=== PATIENT | male | born 1960 | race Caucasian/White ===

== ENCOUNTER → 2020-04-03 | Outpatient (CLI) | payer OTHER ==
[~2020-04-03] MED LIST: AMLODIPINE-BEN1 EAC5 PO; ATORVASTATIN CA20 MG PO; CLOPIDOGREL75 MG PO; GLIMEPIRIDE4 MG PO; HYDROCHLOROTHIA25 M2 PO; JARDIANCE10 MG PO; MAGOX 400400 MG PO; METFORMIN HCL500 MG PO; METOPROLOL SUC100 MG PO; PERCOCET 5-3251 EACH PO; PRED FORTE 1% EY5 M1 OPHTHALMIC; TRIGLIDE160 MG PO; XARELTO10 M1 PO
== END ==
LOC: M.MRI 08:20
PROVIDERS: ATTEND Orthopaedic Surgery
DX: S83.282A Other tear of lateral meniscus, current injury, left knee, initial encounter (principal); S83.242A Other tear of medial meniscus, current injury, left knee, initial encounter; M25.762 Osteophyte, left knee; M25.862 Other specified joint disorders, left knee; M17.12 Unilateral primary osteoarthritis, left knee; G89.29 Other chronic pain; X58.XXXA Exposure to other specified factors, initial encounter; Y93.89 Activity, other specified; Y92.89 Other specified places as the place of occurrence of the external cause; Y99.8 Other external cause status

== ENCOUNTER → 2020-04-29 | Outpatient (CLI) | payer OTHER ==
[~2020-04-29] MED LIST changes: -MAGOX 400400 MG PO; -PERCOCET 5-3251 EACH PO; -XARELTO10 M1 PO
[2020-04-29 10:32] LABS: HEMATOCRIT 46.8 % (42.0-52.0); HEMOGLOBIN 16.7 gm/dL (14.0-18.0); MCH 32.4 pg (26.0-34.0); MCHC 35.7 g/dL (28.0-37.0); MCV 90.7 fL (80.0-100.0); MPV 6.8 fl. (7.2-11.1); RBC 5.16 mil/uL (4.50-6.00); RDW-CV 13.4 % (10.5-14.5)
[2020-04-29 10:39] LABS: PROTIME 10.4 Seconds (9.20-11.50)
[2020-04-29 10:43] LABS: URINE BILIRUBIN NEGATIVE (Negative); URINE BLOOD NEGATIVE (Negative); URINE CLARITY CLEAR; URINE COLOR YELLOW; URINE GLUCOSE-RANDOM TRACE (Negative); URINE KETONES NEGATIVE (Negative); URINE LEUKOCYTES-REFLEX NEGATIVE (Negative); URINE NITRITE-REFLEX NEGATIVE (Negative); URINE PROTEIN NEGATIVE (Negative); URINE SPECIFIC GRAVITY 1.015 (1.005-1.030); URINE UROBILINOGEN 0.2 E.U./dl (0.2-1.0)
[2020-04-29 10:43] LABS: ALBUMIN 4.1 g/dL (3.4-5.0); CALCIUM 9.1 mg/dL (8.5-10.1); POTASSIUM 3.9 mmol/L (3.5-5.1); TOTAL BILIRUBIN 0.5 mg/dL (<0.1-1.0); TOTAL PROTEIN 6.8 g/dL (6.4-8.2)
--- NOTE | 2020-04-29 15:30 | EKG ---
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
== END ==
LOC: M.LAB 08:33
PROVIDERS: ATTEND Orthopaedic Surgery
DX: Z01.812 Encounter for preprocedural laboratory examination (principal); Z20.828 Contact with and (suspected) exposure to other viral communicable diseases; M17.12 Unilateral primary osteoarthritis, left knee; I49.9 Cardiac arrhythmia, unspecified; I45.10 Unspecified right bundle-branch block

== ENCOUNTER 2020-05-06 08:04 | Inpatient (IN) | payer OTHER ==
[~2020-05-06] VITALS: Ht 177.8 cm; Wt 81.2 kg
--- NOTE | ~2020-05-06 | OP ---
[address] [address] OPERATIVE REPORT Name: SEAN OTT Room: [address] IN [facility]#: [id number] Admission: 05/06/20 Attend Phys: Bay Raphael Discharge: Date of : 58 Report #: [id number] THIS REPORT FOR: //name// cc: COLT Thompson family physician/PCP COLT - Donna family physician/PCP ~ CC: [facility] physician/PCP Erik Qureshi DATE OF SERVICE: 05/06/2020 PREOPERATIVE DIAGNOSIS: Left knee osteoarthritis. POSTOPERATIVE DIAGNOSIS: Left knee osteoarthritis. PROCEDURE: Left total knee arthroplasty. SURGEON: Erik Mayen DO INSURANCE SALES PRODUCER: BETZY Ramírez ANESTHESIA: General endotracheal. ESTIMATED BLOOD LOSS: 50 mL. ANTIBIOTICS: Ancef preoperatively. DRAINS: Medium Hemovac. COMPLICATIONS: None. CONDITION OF THE PATIENT: Stable to recovery room. IMPLANTS: Listed in operative record and progress note. BRIEF HISTORY: The patient was seen in the preoperative area. Preoperative H and P was performed. Site was marked, questions were answered. Risks and benefits were discussed with the patient in detail about surgery. The patient wished to proceed, assuming all risks. DESCRIPTION OF PROCEDURE: The patient was taken to the operative suite and placed supine on the operating table, given appropriate anesthesia. A well-padded tourniquet applied to upper thigh, which was inflated to 300 mmHg after gravity exsanguination. The operative knee was sterilely prepped and draped. Surgery began by a midline incision. This was carried down to the subcutaneous tissues. A medial parapatellar arthrotomy was performed and [facility] [address] [facility]. [place] [id number] OPERATIVE REPORT Name: SEAN OTT Room: [address] IN ..#: [id number] Admission: 05/06/20 Attend Phys: Bay Raphael Discharge: Date of : 58 Report #: [id number] carried down to bone. Patella was then everted and excess soft tissue was removed from around the femur. Femoral cutting block was then applied, checked with a drop gale for rotational alignment, pinned in appropriate position and appropriate cuts were made. A 4-in-1 cutting block was then applied, checked for rotational alignment, pinned in appropriate position and appropriate cuts were made. The tibia was then exposed. Excess meniscus was removed. Retractor was placed on collateral ligaments. The tibial cutting block was then applied, pinned in appropriate position, checked with drop gale of rotational alignment and slope, and appropriate cuts were made. The tibial bone was removed. Tibial base plate was then applied, checked for rotational alignment with the drop gale and pinned in appropriate position. Femur was then applied and box cut was reamed. This was then trialed with appropriate spacer, which showed excellent fit and fill and excellent stability of knee through all range of motion. The patella was then reamed in appropriate fashion and sized to appropriate size. Three peg holes were drilled and it was then trialed and showed excellent flexion, extension, excellent tracking of the patella within the groove. These trials were removed. The tibia was punched in appropriate fashion. Bone ends were cleansed with Pulsavac irrigation and cement was mixed and applied to final implants. These were then malleted into position and held the knee in extension and compressed to allow cement to cure. After it cured, excess was removed utilizing a Watson and osteotome. Wound was then copiously irrigated and the final spacer was malleted into position. Tourniquet was deflated. Hemostasis was obtained with electrocautery. Pain cocktail was injected. PRP gel sprayed throughout internal aspects of the knee. Medium Hemovac drain was applied. The capsule was closed with #2 FiberWire and #1 Vicryl in [id number] fashion. Skin was closed with 2-0 Vicryl and a running 3-0 Monocryl. Dermabond and sterile dressing applied. ZAIDA or PolarCare applied. The patient transported to recovery room in stable condition. Counts were correct throughout the procedure. By: [id number] Reynaldo Mayen II, DO /nt
[2020-05-06 08:30] VITALS: BP 147/93
[2020-05-06 15:00] VITALS: BP 135/86
[2020-05-07 00:21] VITALS: BP 183/114
[2020-05-07 04:25] VITALS: BP 140/84
[2020-05-07 04:47] LABS: HEMATOCRIT 39.7 % (42.0-52.0); HEMOGLOBIN 14.3 gm/dL (14.0-18.0); MCH 32.1 pg (26.0-34.0); MCHC 36.1 g/dL (28.0-37.0); MCV 88.8 fL (80.0-100.0); MPV 7.5 fl. (7.2-11.1); RBC 4.47 mil/uL (4.50-6.00); RDW-CV 13.4 % (10.5-14.5); WBC 16.1 thou/uL (4.0-11.0)
[2020-05-07 05:02] LABS: ALBUMIN 3.4 g/dL (3.4-5.0); CALCIUM 8.8 mg/dL (8.5-10.1); MAGNESIUM 1.4 mg/dL (1.8-2.4); POTASSIUM 3.6 mmol/L (3.5-5.1); TOTAL BILIRUBIN 0.5 mg/dL (<0.1-1.0); TOTAL PROTEIN 5.8 g/dL (6.4-8.2)
[2020-05-07 07:50] VITALS: BP 120/80
[2020-05-07 11:22] VITALS: BP 143/88
[2020-05-07 11:57] VITALS: BP 143/88
[2020-05-07] MEDS ORDERED: MAGOX 400400 MG PO (12:14)
[2020-05-07] MEDS ORDERED: XARELTO10 M1 PO (12:42)
[2020-05-07] MEDS ORDERED: PERCOCET 5-3251 EACH PO (12:42)
[2020-05-07 12:49] VITALS: BP 143/88
== END 2020-05-07 14:43 | disposition home health service (06) | DRG 470 ==
LOC: M.TBA 08:04 → M.ORTHSURG 08:04 → M.PRE 10:13 → M.ORTHSURG 14:30
PROVIDERS: Family Medicine; Orthopaedic Surgery; ADMIT Internal Medicine; ATTEND Internal Medicine
PROC: 3E0T3BZ Introduction of Anesthetic Agent into Peripheral Nerves and Plexi, Percutaneous Approach (ICD-10-PCS; principal; 2020-05-06)
PROC: 0SRD0J9 Replacement of Left Knee Joint with Synthetic Substitute, Cemented, Open Approach (ICD-10-PCS; principal; 2020-05-06)
DX: M17.12 Unilateral primary osteoarthritis, left knee (principal); E11.9 Type 2 diabetes mellitus without complications; I10 Essential (primary) hypertension; E78.5 Hyperlipidemia, unspecified; F17.210 Nicotine dependence, cigarettes, uncomplicated; M25.462 Effusion, left knee; E83.42 Hypomagnesemia; Z72.89 Other problems related to lifestyle; Z23 Encounter for immunization